=== PATIENT | male | born 1950 | race Caucasian/White ===

== ENCOUNTER → 2019-01-04 | Outpatient (CLI) | payer OTHER ==
[2019-01-04 09:35] LABS: ALBUMIN 4.3 g/dL (3.4-5.0); DIRECT BILIRUBIN 0.2 mg/dL (<0.1-0.3); TOTAL BILIRUBIN 1.1 mg/dL (<0.1-1.0); TOTAL PROTEIN 8.1 g/dL (6.4-8.2)
== END ==
LOC: M.LAB 08:56
PROVIDERS: Internal Medicine
DX: I47.2 Ventricular tachycardia (principal)

== ENCOUNTER → 2019-01-25 | Outpatient (CLI) | payer OTHER | LOC: M.RAD 09:02 | DX: I47.2 Ventricular tachycardia (principal); Z95.0 Presence of cardiac pacemaker ==

== ENCOUNTER → 2020-01-16 | Outpatient (CLI) | payer OTHER ==
[~2020-01-16] MED LIST: ASA81BEC PO; COREG6.25 MG PO; NORVASC5 M1 PO; PACERONE200 MG PO
[2020-01-16 09:58] LABS: HEMOGLOBIN 13.1 gm/dL (14.0-18.0); MCH 30.5 pg (26.0-34.0); MCHC 33.7 g/dL (28.0-37.0); MCV 90.6 fL (80.0-100.0); RBC 4.31 mil/uL (4.50-6.00); WBC 5.4 thou/uL (4.0-11.0)
[2020-01-16 10:09] LABS: APTT 28.1 Seconds (25.0-31.3); PROTIME 10.4 Seconds (9.20-11.50)
[2020-01-16 10:15] LABS: ALBUMIN 4.1 g/dL (3.4-5.0); CALCIUM 8.6 mg/dL (8.5-10.1); CREATININE 0.8 mg/dL (0.6-1.3); TOTAL BILIRUBIN 0.7 mg/dL (<0.1-1.0); TOTAL PROTEIN 7.8 g/dL (6.4-8.2)
[2020-01-16 11:26] VITALS: BP 130/60
[2020-01-16 15:40] VITALS: BP 119/40
--- NOTE | 2020-01-17 17:37 | CARD ---
[address] [address] CARDIAC CATH REPORT Name: MARCELINO PRATT Room: [facility]#: [id number] Admission: 01/16/20 Attend Phys: Howard Quezada MD Discharge: Date of : [birth year] Report #: [id number] THIS REPORT FOR: //name// cc: MARQUITA Feliciano family physician/PCP MARQUITA Feliciano family physician/PCP ~ THIS REPORT FOR: //name// APPROVED REPORT Study performed: 01/16/2020 10:50:09 Patient Status: OP Room #: Event Personnel: Howard Quezada Bread Icer, Julianna Villegas RN RN, Deepa Sevilla RTR Scrub, Bria Myers RTR Monitor Exam: ICD Lead Replacement Indications: malfunction of existing ICD lead. The patient is a 70 year-old male with a history of ischemic cardiomyopathy with ICD placement for primary prevention. Intraoperative Conscious Sedation Sedation start time: 13:59 Case end Time: 15:08 Fentanyl 75 mcg Versed 2 mg Implanted Devices: Medtronic V Lead 6935- 65 cm SN [id number] Procedure After explaining the risks, benefits, and alternative options, informed consent was obtained from the patient. The patient was brought to the cardiac catheterization lab and the left chest and shoulder were prepped and draped in the usual fashion. During this case, Fluoroscopy and no contrast were used for imaging. The patient was inflitrated with 1% lidocaine with epinephrine in the left chest. The original pocket was opened and the ICD generator was disconnected from the existing lead. The original lead was unable to be removed. Therefore, the lead was capped. The new ventricular lead was inserted and tested with correct capture. The lead was secured with a 0 silk suture. The pocket was irrigated with antibiotics and the ICD generator was connected to the new lead. Correct capture was sensed. The device was placed in the pocket [place] [address] CARDIAC CATH REPORT Name: MARCELINO PRATT Room: [facility]#: [id number] Admission: 01/16/20 Attend Phys: Howard Quezada MD Discharge: Date of : [birth year] Report #: [id number] with 2.0 vicryl. The skin was closed with a 4.0 vicryl suture and dressed with steri strips, benzoin spray, and a stratabsorb. Complications The patient tolerated the procedure well and there were no complications associated with the procedure. Findings Specimens Removed: No Estimated Blood Loss: 5 ml Conclusion 1. Ischemic cardiomyopathy with ICD placed remotely for primary prevention. 2. ICD lead malfunction. 3. Successful replacement of ICD lead with good sensing and capture. Recommendations 1. Follow-up site check in one week. 2. Follow-up device interrogation one to 2 months. <ELECTRONICALLY SIGNED> By: Howard Quezada MD, FACC 01/17/20 1735 1735 173Michaesada Quezada MD, FACC /INF
--- NOTE | 2020-01-18 09:46 | H ---
[place] [address] HISTORY AND PHYSICAL Name: MARCELINO PRATT Room: [facility]#: [id number] Admission: 01/16/20 Attend Phys: Howard Quezada MD Discharge: Date of : [birth year] Report #: [id number] THIS REPORT FOR: //name// cc: MARQUITA - No family physician/PCP FAM - No family physician/PCP ~ THIS REPORT FOR: //name// CC: Deangelo Hale MD [facility] physician/PCP Mathew Navarrete MD [facility] Howard Quezada HISTORY OF PRESENT ILLNESS: The patient is a very pleasant 70-year-old gentleman with a history of rheumatic heart disease with remote aortic and mitral valve replacements with bioprosthetic valves. He is status post AICD. The patient has had a lead fracture of his AICD. His device currently is turned off. The patient presents for implantation of a new AICD lead. He is without cardiac complaint at this time. He denies any chest pain, tightness or pressure. He is not having shortness of breath. CURRENT MEDICATIONS: Amlodipine 5 mg daily, amiodarone 200 mg daily, aspirin 81 mg daily, carvedilol 6.25 mg b.i.d. FAMILY HISTORY: Positive for myocardial infarction in his brother. PAST MEDICAL HISTORY: 1. Aortic valve and mitral valve replacement with bioprosthetic valves in 2004. EF 32%. 2. Nonischemic cardiomyopathy. 3. Status post ICD placement in 2004. 4. Cholecystectomy remotely. SOCIAL HISTORY: The patient is a lifelong nonsmoker, drinks alcohol rarely. REVIEW OF SYSTEMS: Positive for palpitations, joint pain. Otherwise, 14-point review of systems unremarkable. PHYSICAL EXAMINATION: VITAL SIGNS: Stable. Blood pressure is 118/66, pulse is 64 and regular. GENERAL: This is a pleasant gentleman in no distress. Mood and affect appropriate. HEENT: Head is normocephalic, atraumatic. Extraocular muscles are intact. Mucous membranes are moist. NECK: Shows no jugular venous distention. There are no carotid bruits. CHEST: Reveals [place] [address] HISTORY AND PHYSICAL Name: MARCELINO PRATT Room: [facility]#: [id number] Admission: 01/16/20 Attend Phys: Howard Quezada MD Discharge: Date of : [birth year] Report #: [id number] CARDIOVASCULAR: Reveals a regular rhythm with grade 2/6 systolic ejection murmur. ABDOMEN: Reveals normal bowel sounds. The abdomen is soft, nontender. EXTREMITIES: Shows no edema. SKIN: Warm and dry. IMPRESSION AND RECOMMENDATIONS: 1. Rheumatic heart disease, status post aortic and mitral valve replacement with bioprosthetic valves. 2. Nonischemic cardiomyopathy. 3. Status post ICD placement with lead fracture. Plan for AICD lead replacement at this time. <ELECTRONICALLY SIGNED> By: Howard Quezada MD, FACC 01/18/20 0946 1048 [id number] Alexandra Quezada MD, FACC /nt
== END | disposition home or self-care (01) ==
LOC: M.CL 09:08 → EDBD 09:08 → M.CL 10:00
PROVIDERS: Internal Medicine Cardiovascular Disease
DX: T82.110A Breakdown (mechanical) of cardiac electrode, initial encounter (principal); I25.5 Ischemic cardiomyopathy; Y83.8 Other surgical procedures as the cause of abnormal reaction of the patient, or of later complication, without mention of misadventure at the time of the procedure; Z79.899 Other long term (current) drug therapy; Z98.890 Other specified postprocedural states; Z79.82 Long term (current) use of aspirin

== ENCOUNTER 2020-07-23 10:02 | Inpatient (IN) | payer OTHER ==
[2020-07-23] VITALS: BP 105/47
[~2020-07-23] VITALS: Ht 172.7 cm; Wt 73.4 kg
[2020-07-23 10:15] VITALS: BP 171/85
[2020-07-23] MEDS ORDERED: ADULT LOW DOSE81 MG PO (10:19)
[2020-07-23 10:39] LABS: ABSOLUTE EOSINOPHILS 0.2 thou/uL (0.0-0.7); ABSOLUTE LYMPHOCYTES 1.3 thou/uL (0.8-5.3); ABSOLUTE MONOCYTES 0.4 thou/uL (0.0-1.2); ABSOLUTE NEUTROPHILS 4.2 thou/uL (1.6-8.1); BASOPHILS 0.6 %; HEMATOCRIT 42.6 % (42.0-52.0); HEMOGLOBIN 14.5 gm/dL (14.0-18.0); LYMPHOCYTES 20.8 %; MCH 30.3 pg (26.0-34.0); MCV 89.2 fL (80.0-100.0); MPV 8.8 fl. (7.2-11.1); NUCLEATED RBCS 0 /100WBC; PLATELET COUNT* 127 thou/uL (150-400); POLYS 68.6 %; RBC 4.77 mil/uL (4.50-6.00); RDW-CV 14.3 % (10.5-14.5); WBC 6.1 thou/uL (4.0-11.0)
[2020-07-23 10:48] LABS: CALCIUM 9.2 mg/dL (8.5-10.1); CREATININE 0.9 mg/dL (0.6-1.3); POTASSIUM 4.1 mmol/L (3.5-5.1)
[2020-07-23 10:52] LABS: APTT 30.2 Seconds (25.0-31.3); INR 1.1; PROTIME 11.1 Seconds (9.20-11.50)
[2020-07-23 11:22] LABS: ALBUMIN 4.6 g/dL (3.4-5.0); TOTAL PROTEIN 8.9 g/dL (6.4-8.2)
[2020-07-23 15:06] LABS: URINE BILIRUBIN NEGATIVE (Negative); URINE BLOOD 1+ (Negative); URINE CLARITY CLEAR; URINE COLOR YELLOW; URINE GLUCOSE-RANDOM NEGATIVE (Negative); URINE KETONES NEGATIVE (Negative); URINE LEUKOCYTES-REFLEX NEGATIVE (Negative); URINE NITRITE-REFLEX NEGATIVE (Negative); URINE PROTEIN NEGATIVE (Negative); URINE SPECIFIC GRAVITY 1.015 (1.005-1.030); URINE UROBILINOGEN 0.2 E.U./dl (0.2-1.0)
[2020-07-23 15:37] LABS: CRYSTALS None Seen /LPF (None Seen); MUCUS None Seen strn/LPF (None Seen); SQUAMOUS NONE SEEN /LPF (0-3); URINE RBC 0-2 Rare /HPF (0-2); URINE WBC-REFLEX None Seen /HPF (0-5)
[2020-07-23 15:38] LABS: BACTERIA-REFLEX 1-9 Few /HPF (None Seen); CASTS None Seen /LPF (None Seen)
--- NOTE | 2020-07-23 16:31 | EKG ---
[place] [address] ELECTROCARDIOGRAM REPORT Name: MARCELINO PRATT Room: [facility]-6 ADM IN .R.#: [id number] Admission: 07/23/20 Attend Phys: Howard Quezada, Discharge: Date of : [birth year] Date of Service: 07/23/20 1053 Report #: [id number] THIS REPORT FOR: //name// [facility] ED Test Date: 2020-07-23 Test Time: 10:53:45 Pat Name: MARCELINO CLEVELAND Department: Room: [facility] Gender: M Windows Vmware Engineer: NINA : 1949-05-22 Requested By: Ken Rodriguez Order Number: [id number] MD: Mathew Navarrete Measurements Intervals [place] Rate: 70 P: -48 MA: 210 QRS: -27 QRSD: 168 T: 132 QT: 474 QTc: 512 Interpretive Statements Sinus or ectopic atrial rhythm Multiform ventricular premature complexes Left bundle branch block No previous ECG available for comparison Electronically Signed On 07-23-2020 16:31:32 CDT by Mathew Navarrete [email or web address] <ELECTRONICALLY SIGNED> By: Mathew Navarrete MD, [facility] 07/23/20 1631 1053 1053 Mathew Navarrete MD, [facility] /EPI
[2020-07-23 17:05] VITALS: BP 143/51
[2020-07-23 17:20] VITALS: BP 133/55
[2020-07-23 20:00] VITALS: BP 166/78
[2020-07-24 04:00] VITALS: BP 112/46
[2020-07-24 08:00] VITALS: BP 124/47
--- NOTE | 2020-07-24 10:00 | H ---
[place] [address] HISTORY AND PHYSICAL Name: MARCELINO PRATT Room: [address] IN .R.#: [id number] Admission: 07/23/20 Attend Phys: Howard Quezada MD Discharge: Date of : [birth year] Report #: [id number] THIS REPORT FOR: //name// cc: MARQUITA - No family physician/PCP MARQUITA - No family physician/PCP ~ CC: [facility] physician/PCP Mathew Navarrete MD [facility] Howard Quezada DATE OF SERVICE: 07/23/2020 INDICATION: Infected ICD pocket. HISTORY OF PRESENT ILLNESS: The patient is a very pleasant 71-year-old gentleman with history of rheumatic heart disease and remote aortic and mitral valve replacements with bioprosthetic valves. He is status post AICD placement for primary prevention in the setting of a nonischemic cardiomyopathy. In December of this year, he had the ICD generator changed as his existing ICD generator had reached elective replacement. Several weeks later, the patient was seen in the office with some sanguinous drainage and placed on antibiotics. At that time, it was not felt that there was acute infection. The patient now presents several months later with evidence of erosion through the lower portion of the ICD pocket and chronic changes that appear to represent chronic infection. The ICD device is visible at the lower margin of the pocket. The patient is afebrile and without complaint of pain or discomfort at this time. The patient's family had noted drainage from the site and had contacted the office previously. PAST MEDICAL HISTORY: 1. Rheumatic heart disease with aortic and mitral valve replacement with bioprosthetic valves in 2004. 2. Nonischemic cardiomyopathy with ejection fraction 32%. 3. ICD placement initially in 2004 with generator change in 12/2019. The patient had a faulty lead at his last generator change with the replacement of the ICD lead at that time. 4. Cholecystectomy remotely. SOCIAL HISTORY: The patient is a lifelong nonsmoker and drinks alcohol rarely. REVIEW OF SYSTEMS: Positive for occasional palpitations, joint pain. Otherwise, 14-point review of systems is unremarkable. PHYSICAL EXAMINATION: VITAL SIGNS: Stable. Blood pressure was 124/72, pulse is 68 and regular. GENERAL: This is a pleasant man in no distress. Mood and affect appropriate. HEENT: Normocephalic, atraumatic. Extra[place] [address] HISTORY AND PHYSICAL Name: MARCELINO PRATT Room: [address]#: [id number] Admission: 07/23/20 Attend Phys: Howard Quezada MD Discharge: Date of : [birth year] Report #: [id number] membranes are moist. NECK: Shows no jugular venous distention. There are no carotid bruits. CHEST: Reveals clear lung lomax without wheezes, rales or rhonchi. ICD generator site shows evidence of erosion without obvious drainage at this time. CARDIOVASCULAR: Reveals a regular rhythm without gallop or murmur. ABDOMEN: Reveals normal bowel sounds. The abdomen is soft and nontender. EXTREMITIES: Shows no edema. SKIN: Dry. LABORATORY DATA: Current lab show sodium 139, potassium 4.1, chloride 104, bicarbonate 27, BUN 17, creatinine 0.9, serum glucose 141. LFTs are within normal limits. Total protein 8.9, albumin 4.6. EGFR 83. Troponin less than 0.06. NT-proBNP 476. White blood cell count 6.1, hemoglobin 14.5, platelet count 127,000. Chest x-ray shows no acute cardiopulmonary process detected. IMPRESSION AND RECOMMENDATIONS: 1. Chronically infected ICD generator pocket. The patient will require generator removal with lead extraction. At this point in time, attempting to obtain transfer to an institution with capabilities to do such. In the meantime, will continue IV antibiotics and blood cultures have been drawn and are pending. 2. Nonischemic cardiomyopathy, presently compensated and stable. Continue home medications as outlined above. 3. History of aortic and mitral valve replacement with bioprosthetic aortic valves. Will obtain echocardiogram. <ELECTRONICALLY SIGNED> By: Howard Quezada MD, FACC 07/24/20 1000 1838 [id number] Quezada MD, FACC /nt
[2020-07-24 11:44] VITALS: BP 108/50
--- NOTE | 2020-07-24 15:10 | 2DMMODE ---
[place] [address] 2 D/M-MODE ECHOCARDIOGRAM Name: MARCELINO PRATT Room: [address] IN [facility].#: [id number] Admission: 07/23/20 Attend Phys: Howard Quezada, Discharge: Date of : [birth year] Date of Service: 07/24/20 1510 Report #: [id number] THIS REPORT FOR: cc: MARQUITA - No family physician/PCP MARQUITA - Jodie family physician/PCP Mathew Navarrete MD [facility] ~ APPROVED REPORT Study performed: 07/24/2020 09:30:47 EXAM: Comprehensive 2D, Doppler, and color-flow Echocardiogram Patient Location: In-Patient Room #: [facility] Status: routine BSA: 1.86 HR: 69 bpm BP: 124/47 mmHg Rhythm: NSR Other Information Study Quality: Good Indications Murmur 2D Dimensions IVSd: 12.55 (7-11mm) LVOT Diam: 19.61 (18-24mm) LVDd: 36.60 mm PWd: 11.88 (7-11mm) Ascending Ao: 32.65 (22-36mm) LVDs: 27.06 (25-40mm) Aortic Root: 33.68 mm Volumes Left Atrial Volume (Systole) LA ESV Index: 30.30 mL/m2 Aortic Valve AoV Peak Abraham.: 1.76 m/s AO Peak Gr.: 12.39 mmHg LVOT Max P.91 mmHg AO Mean Gr.: 7.17 mmHg LVOT Mean P.04 mmHg LVOT Max V: 0.69 m/s AO V2 VTI: 36.76 cm LVOT Mean V: 0.48 m/s LINDA (VTI): 1.31 cm2 LVOT V1 VTI: 15.90 [place] [address] 2 D/M-MODE ECHOCARDIOGRAM Name: MARCELINO PRATT Room: [address] [place] .R.#: [id number] Admission: 07/23/20 Attend Phys: Howard Quezada, Discharge: Date of : [birth year] Date of Service: 07/24/20 1510 Report #: [id number] Mitral Valve MV Mean Gr.: 5.52 mmHg E/A Ratio: 1.63 MV Decel. Time: 324.86 ms MV E Max Abraham.: 1.80 m/s MV PHT: 94.21 ms MVA (PHT): 2.34 cm2 TDI E/Lateral E': 16.36 E/Medial E': 22.50 Medial E' Abraham.: 0.08 m/s Lateral E' Abraham.: 0.11 m/s Pulmonary Valve PV Peak Abraham.: 1.27 m/s PV Peak Gr.: 6.40 mmHg Tricuspid Valve RAP Estimate: 5.00 mmHg TR Peak Gr.: 31.88 mmHg RVSP: 36.00 mmHg PA Pressure: 36.00 mmHg Left Ventricle The left ventricle is normal size. There is normal LV segmental wall motion. There is normal left ventricular wall thickness. The left ventricular systolic function is normal. The left ventricular ejection fraction is within the normal range. LVEF is 55%. Right Ventricle The right ventricle is normal size. The right ventricular systolic function is normal. Pacemaker lead is present in the right ventricle. Atria Left atrium is mildly dilated. The right atrium size is normal. Aortic Valve Bioprosthetic aortic valve is present. No aortic regurgitation is present. Mild aortic stenosis. Mitral Valve There is a bioprosthetic mitral valve. There is no mitral valve regurgitation noted. No evidence of mitral valve stenosis. Tricuspid Valve The tricuspid valve is normal in structure. Mild tricuspid regurgitation. [place] [address] 2 D/M-MODE ECHOCARDIOGRAM Name: MARCELINO PRATT Room: [address] [place] M.R.#: [id number] Admission: 07/23/20 Attend Phys: Howard Quezada, Discharge: Date of : [birth year] Date of Service: 07/24/20 1510 Report #: [id number] Pulmonic Valve The pulmonary valve is normal in structure. Trace pulmonic regurgitation. Great Vessels The aortic root is normal in size. IVC is normal in size and collapses >50% with inspiration. Pericardium There is no pericardial effusion. <Conclusion> The left ventricle is normal size. There is normal left ventricular wall thickness. The left ventricular systolic function is normal. The left ventricular ejection fraction is within the normal range. LVEF is 55%. The right ventricle is normal size. Left atrium is mildly dilated. The right atrium size is normal. Bioprosthetic aortic valve is present. No aortic regurgitation is present. Mild aortic stenosis. There is a bioprosthetic mitral valve. There is no mitral valve regurgitation noted. No evidence of mitral valve stenosis. The tricuspid valve is normal in structure. Mild tricuspid regurgitation. Mild pulmonary hypertension. IVC is normal in size and collapses >50% with inspiration. There is no pericardial effusion. There is normal LV segmental wall motion. Pacemaker lead is present in the right ventricle. <ELECTRONICALLY SIGNED> By: Mathew Navarrete MD, FACC 07/24/201509 09 09 Mathew Navarrete MD, FACC /INF
[2020-07-24 16:31] VITALS: BP 120/48
[2020-07-24 17:47] VITALS: BP 120/48
== END 2020-07-24 18:45 | disposition short-term general hospital (02) | DRG 315 ==
LOC: M.ERS 10:02 → M.TBA-ER 10:33 → M.2W 17:24
PROVIDERS: Family Medicine; ADMIT Internal Medicine Cardiovascular Disease; ATTEND Internal Medicine Cardiovascular Disease
DX: T82.7XXA Infection and inflammatory reaction due to other cardiac and vascular devices, implants and grafts, initial encounter (principal); I42.8 Other cardiomyopathies; Z20.828 Contact with and (suspected) exposure to other viral communicable diseases; Y83.8 Other surgical procedures as the cause of abnormal reaction of the patient, or of later complication, without mention of misadventure at the time of the procedure; I10 Essential (primary) hypertension; Z79.01 Long term (current) use of anticoagulants; Z79.899 Other long term (current) drug therapy; Z79.82 Long term (current) use of aspirin; Y92.89 Other specified places as the place of occurrence of the external cause; Z45.018 Encounter for adjustment and management of other part of cardiac pacemaker; Z90.49 Acquired absence of other specified parts of digestive tract; Z95.2 Presence of prosthetic heart valve